=== PATIENT | female | born 1965 | race African-American/Black ===

== ENCOUNTER 2017-01-03 23:12 | Emergency (ER) | payer OTHER ==
[2017-01-04 00:05] VITALS: BP 164/115; PULSE 74; TEMP 97.9; BMI 51.6
--- NOTE | 2017-01-04 01:36 | PDOC ---
History of Present Illness - General Chief Complaint: Head/Neck problem Stated Complaint: LEFT SIDE PAIN Time Seen by Provider: 01/04/17 01:11 History Source: Patient Exam Limitations: No Limitations - History of Present Illness Initial Comments: 01/04/17 01:31 51yo Female patient with no significant past medical presents to ED with multiple complaints. Patient states 2 days ago having intermittent numbness to Lt face. Patient states symptoms of Rt arm pain and numbness x 2 weeks preceded facial numbness. Patient also c/o Rt posterior foot pain atraumatic in nature. She denies any other complaints at this time. LNMP: 2 yrs ago. Timing/Duration: reports: other (See HPI) Severity: Yes: mild Episode Description: See HPI Associated Symptoms: denies: denies symptoms, confusion, fatigue, fever/chills, insomnia, loss of consciousness, muscle spasms, nausea/vomiting, numbness in legs/feet, paresthesia, ringing in ears, seizures, sleepy, slurred speech, tingling in legs/feet, trouble walking, vision changes, weakness, other Past History - Travel Traveled outside of the country in the last 30 days: No Close contact w/someone who was outside of country & ill: No - Past Medical History Allergies/Adverse Reactions: Allergies Allergy/AdvReac Type Severity Reaction Status Date / Time Penicillins Allergy Verified 01/04/17 00:02 Home Medications: Ambulatory Orders Amlodipine Besylate [Norvasc -] 2.5 mg PO BID #14 tab 09/23/15 Ibuprofen [Motrin -] 600 mg PO QID #28 tablet 09/23/15 Azithromycin [Zithromax Tri-Landry (3 DAYS) -] 500 mg PO DAILY #7 tablet 01/06/16 Oxycodone HCl/Acetaminophen [Percocet 5-325 mg Tablet] 1 tab PO Q6H #20 tablet MDD 4 01/06/16 Pregabalin [Lyrica] 100 mg PO BID #14 capsule MDD 2 01/06/16 HTN: Yes (non compliants with meds, last taken wednesday) - Immunization History Immunization Up to Date: Yes - Psycho/Social/Smoking Cessation Hx Anxiety: No Suicidal Ideation: No Smoking History: Never smoked Have you smoked in the past 12 months: No Information on smoking cessation initiated: No Hx Alcohol Use: No Drug/Substance Use Hx: No Substance Use Type: Alcohol Neuro Specific PMHX - Complaint Specific PMHX Glaucoma: No Herniated Disk: No Laminectomy: No Migraine: No Multiple Sclerosis: No Neuropathy: No TIA: No Review of Systems - Review of Systems Able to Perform ROS?: Yes Is the patient limited Mohawk proficient: No Constitutional: No: Chills, Fever HEENTM: No: Blurred Vision, Recent change in vision, Double Vision Respiratory: No: Shortness of Breath, Stridor, Wheezing, Hemoptysis Cardiac (ROS): No: Chest Pain, Lightheadedness, Palpitations, Syncope, Chest Tightness ABD/GI: No: Constipated, Diarrhea, Nausea, Vomiting, Abdominal cramping : No: Dysuria, Flank Pain, Hematuria Musculoskeletal: Yes: Other (Right arm pain) Integumentary: No: Erythema Neurological: Yes: Numbness (Face and Right shoulder). No: Paresthesia, Seizure , Tingling, Tremors, Weakness, Ataxia All Other Systems: Reviewed and Negative *Physical Exam - Vital Signs Last Vital Signs Temp Pulse Resp BP Pulse Ox 97.9 F 74 20 164/115 98 01/04/17 00:03 01/04/17 00:03 01/04/17 00:03 01/04/17 00:03 01/04/17 00:03 - Physical Exam General Appearance: Yes: Nourished, Appropriately Dressed. No: Apparent Distress, Mild Distress, Moderate Distress, Severe Distress HEENT: positive: EOMI, CALISTA, Normal ENT Inspection, Normal Voice, Symmetrical, TMs Normal, Pharynx Normal. negative: Photophobia, Pharyngeal Erythema, Tonsillar Exudate, Tonsillar Erythema, Rhinorrhea, Sinus Tenderness, TM Bulging , TM Dull, TM Erythema, Excessive drooling Neck: positive: Trachea midline, Supple. negative: Tender, Stridor, Lymphadenopathy (R), Lymphadenopathy (L) Respiratory/Chest: positive: Lungs Clear, Normal Breath Sounds. negative: Chest Tender, Respiratory Distress, Accessory Muscle Use, Labored Respiration, Rapid RR, Crackles, Rales, Rhonchi, Stridor, Wheezing Cardiovascular: positive: Regular Rhythm, Regular Rate. negative: Edema Gastrointestinal/Abdominal: positive: Normal Bowel Sounds, Soft. negative: Distended, Guarding, Rebound, Tenderness Musculoskeletal: positive: Normal Inspection. negative: CVA Tenderness, CVA Tenderness (R), CVA Tenderness (L) Extremity: positive: Normal Capillary Refill, Normal Inspection, Normal Range of Motion. negative: Pedal Edema, Swelling, Calf Tenderness, Erythema, Inflammation Integumentary: positive: Normal Color, Dry, Warm. negative: Erythema, Rash, Swelling Neurologic: positive: hand outside cutter II-XII NML intact, Fully Oriented, Alert, Normal Mood/ Affect, Normal Response, Motor Strength 5/5, Finger to Nose. negative: Facial Droop, Sensory Deficit, Confused, Disoriented ED Treatment Course - LABORATORY CBC & Chemistry Diagram: 01/04/17 01:47 01/04/17 01:47 - RADIOLOGY Radiology Studies Ordered: Category Date Time Status HEAD CT WITHOUT CONTRAST [CT] Stat CT Scan 01/04/17 01:30 Ordered *DC/Admit/Observation/Transfer Diagnosis at time of Disposition: Right foot pain, Numbness - Discharge Dispostion Disposition: HOME Condition at time of disposition: Improved Admit: No - Referrals Referrals: Aldair Gusman MD [Staff Physician] - - Patient Instructions Printed Discharge Instructions: DI for Numbness/tingling Additional Instructions: FOLLOW UP WITH DR. GUSMAN (NEUROLOGY). CALL TO SCHEDULE APPOINTMENT. RETURN IF SYMPTOMS WORSEN OR ANY CONCERN FOR FURTHER EVALUATION. Print Language: FRISIAN
[2017-01-04 01:57] LABS: BASOPHIL 0.4 % (0-2.0); EOSINOPHIL 2.1 % (0-4.5); MCH 29.5 pg (25.7-33.7); MEAN CELL VOLUME 89.3 fl (80-96); MEAN PLT VOLUME 8.9 fl (7.5-11.1); NEUTROPHILS 56.9 % (42.8-82.8); PLATELET COUNT 216 K/MM3 (134-434); RDW 13.3 % (11.6-15.6); WHITE BLOOD COUNT 11.2 K/mm3 (4.0-10.0)
[2017-01-04 02:09] LABS: INR 1.03 (0.82-1.09); PROTHROMBIN TIME (PATIENT) 11.3 SEC (9.98-11.88)
[2017-01-04 02:12] LABS: ACTIVATED PTT 39.5 SECONDS (26.9-34.4)
[2017-01-04 02:21] LABS: ALBUMIN 3.8 g/dl (3.4-5.0); ANION GAP 7 (8-16); BILIRUBIN,TOTAL 0.4 mg/dL (0.2-1.0); CALCIUM 8.7 mg/dL (8.5-10.1); CO2 27 mmol/L (21-32); GLUCOSE,RANDOM 104 mg/dL (74-106); SGOT/AST 53 U/L (15-37); SGPT/ALT 54 U/L (12-78); TOT PROT 7.5 g/dl (6.4-8.2)
[2017-01-04 02:24] LABS: ALK PHOS 106 U/L (45-117); TROPONIN I < 0.02 ng/ml (0.00-0.05)
[2017-01-04 02:51] LABS: URINE APPEARANCE CLEAR; URINE BILIRUBIN NEGATIVE (NEGATIVE); URINE BLOOD NEGATIVE (NEGATIVE); URINE COLOR LTYELLOW; URINE GLUCOSE (UA) NEGATIVE (NEGATIVE); URINE KETONE NEGATIVE (NEGATIVE); URINE LEUK ESTERASE NEGATIVE (NEGATIVE); URINE NITRITE NEGATIVE (NEGATIVE); URINE UROBILINOGEN NEGATIVE mg/dL (0.2-1.0)
[2017-01-04 02:52] LABS: URINE PROTEIN 1+ (NEGATIVE)
[2017-01-04 02:54] LABS: URINE BACTERIA FEW /hpf (NONE SEEN); URINE MUCUS RARE; URINE RBC <1 /hpf (0-3); URINE WBC 4 /hpf (3-5)
--- NOTE | 2017-01-04 12:33 | EKG ---
Test Reason : Blood Pressure : / mmHG Vent. Rate : 060 BPM Atrial Rate : 060 BPM P-R Int : 164 ms QRS Dur : 100 ms QT Int : 448 ms P-R-T Axes : 063 005 062 degrees QTc Int : 448 ms NORMAL SINUS RHYTHM WITH SINUS ARRHYTHMIA POSSIBLE LEFT ATRIAL ENLARGEMENT SEPTAL INFARCT , AGE UNDETERMINED ABNORMAL ECG WHEN COMPARED WITH ECG OF 23-SEP-2015 09:54, VENT. RATE HAS DECREASED BY 51 BPM Confirmed by TIBURCIO ALAS, TOMI ([id number]) on 01/04/2017 12:32:35 PM Referred By: Confirmed By:TOMI DEY MD
== END 2017-01-04 04:40 | disposition home or self-care (01) ==
LOC: JER 23:12
DX: R20.0 Anesthesia of skin (principal); I10 Essential (primary) hypertension; Z91.14 Patient's other noncompliance with medication regimen
CPT/HCPCS: 36415; 70450-TC; 80053; 81003; 81015; 82550; 82553; 84484; 85025; 85610; 85730; 93005; 93010; 99283-25

== ENCOUNTER 2017-07-20 09:00 | Emergency (ER) | payer OTHER ==
[2017-07-20 09:19] VITALS: PULSE 63; TEMP 98.5; BMI 43.5
[2017-07-20 09:54] VITALS: BP 145/109
[2017-07-20] MEDS ORDERED: ONDANSETRON *ODT* 4 MG TABLET SL ONE (10:01)
[2017-07-20] MEDS ORDERED: ONDANSETRON *ODT* 4 MG TABLET ONE (10:06)
[2017-07-20] MEDS ORDERED: amLODIPine BESYLATE 10 MG TABLET (FP) PO ONE (10:33)
--- NOTE | 2017-07-20 10:37 | PDOC ---
History of Present Illness - General Chief Complaint: Nausea/Vomiting Stated Complaint: NAUSEA/VOMITING Time Seen by Provider: 07/20/17 09:45 History Source: Patient Exam Limitations: No Limitations - History of Present Illness Initial Comments: 07/20/17 10:33 52 yr female history of HTN stopped med one month ago after running out presents to ER with nvd started last night 5pm with chills. no urianry complaints, no headache or blurry vision no chest pain. Pt states she has been around persons with flu. Past History - Past Medical History Allergies/Adverse Reactions: Allergies Allergy/AdvReac Type Severity Reaction Status Date / Time Penicillins Allergy Verified 07/20/17 09:10 Home Medications: Ambulatory Orders Amlodipine Besylate 10 mg PO DAILY 07/20/17 Amlodipine Besylate 10 mg PO DAILY #30 tablet 07/20/17 Ondansetron [Zofran Odt -] 4 mg SL TID PRN #12 od.tablet 07/20/17 COPD: No DVT: No HTN: Yes (non compliants with meds, last taken wednesday) - Immunization History Immunization Up to Date: Yes - Suicide/Smoking/Psychosocial Hx Smoking History: Never smoked Have you smoked in the past 12 months: No Information on smoking cessation initiated: No Hx Alcohol Use: No Drug/Substance Use Hx: No Substance Use Type: Alcohol Review of Systems - Review of Systems Able to Perform ROS?: Yes Is the patient limited Indonesian proficient: No Constitutional: No: Symptoms Reported HEENTM: No: Symptoms Reported Respiratory: No: Symptoms reported Cardiac (ROS): No: Symptoms Reported ABD/GI: Yes: Symptoms Reported *Physical Exam - Vital Signs Last Vital Signs Temp Pulse Resp BP Pulse Ox 98.5 F 63 16 145/109 96 07/20/17 09:10 07/20/17 09:10 07/20/17 09:10 07/20/17 09:53 07/20/17 09:10 - Physical Exam General Appearance: Yes: Nourished, Appropriately Dressed HEENT: positive: EOMI, CALISTA, Normal ENT Inspection, TMs Normal, Pharynx Normal. negative: TM Erythema Neck: positive: Supple. negative: Tender Respiratory/Chest: positive: Lungs Clear, Normal Breath Sounds. negative: Chest Tender Cardiovascular: positive: Regular Rhythm, Regular Rate Gastrointestinal/Abdominal: positive: Normal Bowel Sounds, Soft. negative: Tender Rectal Exam: positive: deferred Musculoskeletal: positive: Normal Inspection Extremity: positive: Normal Capillary Refill, Normal Inspection, Normal Range of Motion Integumentary: positive: Normal Color, Dry, Warm Neurologic: positive: Normal Response, Motor Strength 10/23 ED Treatment Course - Medications Given in the ED: ED Medications Discontinued Medications Generic Name Dose Route Start Last Admin Trade Name Shanae PRN Reason Stop Dose Admin Ondansetron HCl 4 mg 07/20/17 10:01 07/20/17 10:07 Zofran Odt - SL 07/20/17 10:02 4 mg ONCE ONE Administration Medical Decision Making - Medical Decision Making 07/20/17 10:34 cc: chills, nvd started last night with nausea today will give zofran dose of norvasc will check for flu ] 07/20/17 16:12 negative for flu dc inst discussed in detail with pt who understands she must follow up regardig her BP with her PMD this week call today to make appointment. I will give a 30 days upply of her norvasc. at discharge pt denies headache no weakness no vision changes. BP 147/99 left arm 150/100 right arm pt states this is her usual BP readings. *DC/Admit/Observation/Transfer Diagnosis at time of Disposition: Acute gastroenteritis - Discharge Dispostion Disposition: HOME Condition at time of disposition: Good - Prescriptions Prescriptions: Amlodipine Besylate 10 mg PO DAILY #30 tablet Ondansetron [Zofran Odt -] 4 mg SL TID PRN #12 od.tablet PRN Reason: Nausea And/Or Vomiting - Referrals Referrals: Bob Jean MD [Primary Care Provider] - - Patient Instructions Additional Instructions: bland diet clear liquids ice pops jello dry crackers dry toast plain rice follow with our doctor to discuss your blood pressure today it was 149/106 we gave you norvasc today 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
[2017-07-20] MEDS ORDERED: amLODIPine BESYLATE 5 MG TABLET (FP) ONE (10:38)
== END 2017-07-20 11:22 | disposition home or self-care (01) ==
LOC: JER 09:00 → JERFT 09:00
DX: K52.9 Noninfective gastroenteritis and colitis, unspecified (principal); I10 Essential (primary) hypertension; Z91.14 Patient's other noncompliance with medication regimen
CPT/HCPCS: 87804; 99281-25

== ENCOUNTER 2017-10-05 08:15 | Emergency (ER) | payer OTHER ==
[2017-10-05] MEDS ORDERED: KETOROLAC TROMETHAMINE 30 MG/1 ML VIAL IM ONE (08:20)
--- NOTE | 2017-10-05 08:22 | PDOC ---
History of Present Illness - General Chief Complaint: Injury Stated Complaint: FALL Time Seen by Provider: 10/05/17 08:17 - History of Present Illness Initial Comments: 10/05/17 08:17 Ms. Ordaz is a 52 yo female w/ pmh of HTN who presents for evaluation of lower extremity pain after left leg "buckeled" while going down the stairs earlier today. She reports she was on the 3rd step up from the landing when she felt her left knee give out. She then fell backwards and believes she hurt her right leg by twisting it at this time. She denies any LOC or head injury and has no pain along her back at this time. The patient denies chest pain, shortness of breath, headache and dizziness. Denies fever, chills, nausea, vomit, diarrhea and constipation. Denies dysuria, frequency, urgency and hematuria. Allergies: Penicillins Past History - Past Medical History Allergies/Adverse Reactions: Allergies Allergy/AdvReac Type Severity Reaction Status Date / Time Penicillins Allergy Verified 10/05/17 08:56 Home Medications: Ambulatory Orders NK [No Known Home Medication] 10/05/17 COPD: No DVT: No HTN: Yes (non compliants with meds, last taken wednesday) - Immunization History Immunization Up to Date: Yes - Suicide/Smoking/Psychosocial Hx Smoking History: Never smoked Have you smoked in the past 12 months: No Hx Alcohol Use: No Drug/Substance Use Hx: No Substance Use Type: Alcohol Review of Systems - Review of Systems Comments:: 10/05/17 08:25 GENERAL/CONSTITUTIONAL: No fever or chills. No weakness. HEAD, EYES, EARS, NOSE AND THROAT: No change in vision. No ear pain or discharge. No sore throat. CARDIOVASCULAR: No chest pain or shortness of breath RESPIRATORY: No cough, wheezing, or hemoptysis. GASTROINTESTINAL: No nausea, vomiting, diarrhea or constipation. GENITOURINARY: No dysuria, frequency, or change in urination. MUSCULOSKELETAL: Left knee and right ankle pain SKIN: No rash NEUROLOGIC: No headache, vertigo, loss of consciousness, or change in strength/ sensation. ENDOCRINE: No increased thirst. No abnormal weight change HEMATOLOGIC/LYMPHATIC: No anemia, easy bleeding, or history of blood clots. ALLERGIC/IMMUNOLOGIC: No hives or skin allergy. *Physical Exam - Physical Exam Comments: 10/05/17 08:25 GENERAL: Awake, alert, and fully oriented, in no acute distress HEAD: No signs of trauma, normocephalic, atraumatic EYES: PERRLA, EOMI, sclera anicteric, conjunctiva clear ENT: Auricles normal inspection, hearing grossly normal, nares patent, oropharynx clear without exudates. Moist mucosa NECK: Normal ROM, supple, no lymphadenopathy, JVD, or masses LUNGS: No distress, speaks full sentences, clear to auscultation bilaterally HEART: Regular rate and rhythm, normal S1 and S2, no murmurs, rubs or gallops, peripheral pulses normal and equal bilaterally. ABDOMEN: Soft, nontender, normoactive bowel sounds. No guarding, no rebound. No masses EXTREMITIES: +TTP at right inferior malleolus and left interarticular knee joint space. NEUROLOGICAL: Cranial nerves II through XII grossly intact. Normal speech, normal gait, no focal sensorimotor deficits SKIN: Warm, Dry, normal turgor, no rashes or lesions noted. Medical Decision Making - Medical Decision Making 10/05/17 08:26 Ms. Ordaz is a 52 yo female w/ no pmh who presents for evaluation of leg pain post fall. XR sent for evaluation to r/o fracture. 10/05/17 10:41 XR negative for fracture of ankle or knee 10/05/17 11:01 Knee wrapped with santa bandage and air cast given for ankle. Patient able to ambulate with crutches. Discharging patient w/ ortho f/u information patient will use as needed. Patient will take ibuprofen/aleve OTC for pain relief. Discharging to home. *DC/Admit/Observation/Transfer Diagnosis at time of Disposition: Fall Qualifiers: Encounter type: initial encounter Qualified Code(s): W19.XXXA - Unspecified fall, initial encounter - Discharge Dispostion Disposition: HOME - Referrals Referrals: Anderson Chung MD [Staff Physician] - Aldair Gupta MD [Staff Physician] - - Patient Instructions Printed Discharge Instructions: DI for Knee Sprain, DI for Ankle Sprain Additional Instructions: Please return if pain not controllable with over the counter medication. Follow- up with orthopedic physician at provided information as needed. - Post Discharge Activity Forms/Work/School Notes: Back to Work
[2017-10-05] MEDS ORDERED: KETOROLAC TROMETHAMINE 30 MG/1 ML VIAL ONE (08:28)
[2017-10-05] MEDS ORDERED: HYDROCHLOROTHIAZIDE 12.5 MG CAPSULE (FP) PO ONE (08:59)
[2017-10-05] MEDS ORDERED: HYDROCHLOROTHIAZIDE 25 MG TABLET (FP) ONE (09:02)
[2017-10-05 09:05] VITALS: PULSE 84; TEMP 97.2; BMI 44.9
--- NOTE | 2017-10-05 09:19 | PDOC ---
Attending Attestation - Resident Resident Name: Patrice Barrorn - ED Attending Attestation I have performed the following: I have examined & evaluated the patient, The case was reviewed & discussed with the resident, I agree w/resident's findings & plan - HPI HPI: 10/05/17 09:12 52-year-old female with history of hypertension (not compliant with her medications) presents with left knee and right ankle pain after injury last night. Patient was walking downstairs, planted her weight on her left leg when her left knee gave out causing her to twist her right ankle. She landed on the steps on her bottom, did not sustain injury there. Remains seated for the rest of the night, then activated EMS. She has not ambulated since the injury. Complaining of right ankle pain and left knee pain. - Physicial Exam PE: 10/05/17 09:13 Vital signs as noted, slightly elevated blood pressure but asymptomatic Left knee with some discomfort to palpation along the lateral joint space, stable on anterior/posterior/valgus/varus stress. No focal bony tenderness or deformity. Right ankle with tenderness over the medial malleolus, slight joint swelling, neurovascularly intact distally Trauma exam is otherwise unremarkable - Medical Decision Making 10/05/17 09:14 Patient seen and evaluated with the resident. I agree with the overall evaluation, assessment, and management with the following summary of visit: 52y/o F with musculoskeletal pain, likely L knee strain (atraumatic) and R ankle sprain, r/o fracture. NVI. R ankle, L knee xrays ice and pain meds reassess PMD referral for BP 10/05/17 10:46 xray negative for fracture. Bulky dressing and splint for support, WBAT, ortho f /u.
[2017-10-05 10:41] VITALS: BP 189/103
== END 2017-10-05 11:08 | disposition home or self-care (01) ==
LOC: JER 08:15
PROC: 2W3RX1Z Immobilization of Left Lower Leg using Splint (ICD-10-PCS; principal; 2017-10-05)
DX: S93.492A Sprain of other ligament of left ankle, initial encounter (principal); S83.8X2A Sprain of other specified parts of left knee, initial encounter; W10.8XXA Fall (on) (from) other stairs and steps, initial encounter; Y93.89 Activity, other specified; Y92.69 Other specified industrial and construction area as the place of occurrence of the external cause; Y99.0 Civilian activity done for income or pay
CPT/HCPCS: 73562-TC-LT-FY; 73610-TC-RT-FY; 73630-TC-RT-FY; 99282-25

== ENCOUNTER 2018-05-31 08:52 | Emergency (ER) | payer OTHER ==
[2018-05-31 09:02] VITALS: BP 169/82; PULSE 67; TEMP 98; BMI 46.2
[2018-05-31] MEDS ORDERED: IBUPROFEN 600 MG TABLET (FP) PO ONE ×2 (09:41→09:42)
--- NOTE | 2018-05-31 09:44 | PDOC ---
History of Present Illness - General Chief Complaint: Cold Symptoms Stated Complaint: PAIN,LT SHOULDER/EARS Time Seen by Provider: 05/31/18 09:35 History Source: Patient Exam Limitations: No Limitations - History of Present Illness Initial Comments: 05/31/18 09:42 Patient here with complaints of body aches, chills, headache pain neck pain sore throat pain and ear pain that started last night. States cousin was sick last week with URI and thinks may be the same. Has taken no medication for relief. Denies fevers also complains of left shoulder pain without trauma. States does not do any heavy lifting or strenuous activity, has no known recent injury or trauma, no rashes lesions or fevers. Timing/Duration: reports: getting worse Severity: reports: moderate Associated Symptoms: reports: cough, earache, fever/chills, headache, nasal congestion, sore throat Past History - Travel Traveled outside of the country in the last 30 days: No Close contact w/someone who was outside of country & ill: No - Past Medical History Allergies/Adverse Reactions: Allergies Allergy/AdvReac Type Severity Reaction Status Date / Time Penicillins Allergy Verified 10/05/17 08:56 Home Medications: Ambulatory Orders Naproxen [Naprosyn -] 500 mg PO BID #30 tablet 05/31/18 COPD: No DVT: No HTN: Yes (non compliants with meds, last taken wednesday) - Immunization History Immunization Up to Date: Yes - Suicide/Smoking/Psychosocial Hx Smoking History: Never smoked Have you smoked in the past 12 months: No Information on smoking cessation initiated: No Hx Alcohol Use: No Drug/Substance Use Hx: No Substance Use Type: Alcohol Review of Systems - Review of Systems Able to Perform ROS?: Yes Is the patient limited Paraguayan proficient: Yes Constitutional: Yes: Symptoms Reported, See HPI, Malaise HEENTM: Yes: Symptoms Reported, See HPI, Nose Congestion Respiratory: Yes: Symptoms reported, See HPI, Cough, Wheezing : No: Symptoms Reported Musculoskeletal: Yes: Symptoms Reported, Joint Pain, Joint Swelling Integumentary: Yes: Symptoms Reported, See HPI All Other Systems: Reviewed and Negative *Physical Exam - Vital Signs Last Vital Signs Temp Pulse Resp BP Pulse Ox 98.0 F 67 16 169/82 96 05/31/18 08:59 05/31/18 08:59 05/31/18 08:59 05/31/18 08:59 05/31/18 08:59 - Physical Exam General Appearance: Yes: Nourished, Appropriately Dressed, Apparent Distress, Mild Distress HEENT: positive: CALISTA, Normal ENT Inspection, TMs Normal, Pharynx Normal, Tonsillar Erythema, Nasal Congestion, Rhinorrhea. negative: Pharyngeal Erythema , Tonsillar Exudate Neck: positive: Supple. negative: Lymphadenopathy (R), Lymphadenopathy (L) Respiratory/Chest: positive: Lungs Clear, Normal Breath Sounds Gastrointestinal/Abdominal: positive: Soft. negative: Tender Extremity: positive: Normal Capillary Refill, Normal Inspection. negative: Normal Range of Motion (limited range of motion to left shoulder, able to abduct and forward flex to proximally 90 with reproducible tenderness against resistance. Has strong flexion and extension at wrist and strong grasp. 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 Given Naprosyn for anti- inflammatory and pain relief. *DC/Admit/Observation/Transfer Diagnosis at time of Disposition: Upper respiratory infection Left shoulder strain Qualifiers: Encounter type: initial encounter Qualified Code(s): S46.912A - Strain of unspecified muscle, fascia and tendon at shoulder and upper arm level, left arm , initial encounter - Discharge Dispostion Disposition: HOME Condition at time of disposition: Stable Decision to Admit order: No - Prescriptions Prescriptions: Naproxen [Naprosyn -] 500 mg PO BID #30 tablet - Referrals Referrals: Shorty Johnson MD [Primary Care Provider] - Ron Arita MD [Staff Physician] - - Patient Instructions Printed Discharge Instructions: DI for Viral Upper Respiratory Infection -- Adult, DI for Shoulder Sprain Additional Instructions: Rest, drink lots of fluids: Teas, water, soups, Pedialyte Saltwater gargles Steamy showers/seem to face break up mucus Avoid contact with others until fevers and cough resolved Lots of handwashing and good hygiene Continue [id number] medications for symptomatic relief Tylenol or Motrin for fever and pain Followup with private physician in one to 2 days as needed Return to emergency department for worsened symptoms, fevers, dehydration - Post Discharge Activity Forms/Work/School Notes: Back to Work
== END 2018-05-31 10:50 | disposition home or self-care (01) ==
LOC: JERFT 08:52
DX: J06.9 Acute upper respiratory infection, unspecified (principal); S46.912A Strain of unspecified muscle, fascia and tendon at shoulder and upper arm level, left arm, initial encounter; I10 Essential (primary) hypertension
CPT/HCPCS: 73030-TC-LT-FY; 87804; 99281-25

== ENCOUNTER 2020-09-17 18:51 | Emergency (ER) | payer OTHER ==
[2020-09-17 19:01] VITALS: BP 151/84; PULSE 78; TEMP 98.4; BMI 41.9
[2020-09-17] MEDS ORDERED: LACTATED RINGERS SOLUTION 1000 ML INFUS.BAG IV ONE (19:52)
[2020-09-17 20:37] LABS: THROAT:GRP A STREP Negative (Negative)
[2020-09-17 20:43] LABS: BASO % 0.3 % (0-2.0); EOS % 1.6 % (0-4.5); HEMATOCRIT 39.4 % (32.4-45.2); HEMOGLOBIN 13.4 GM/dL (10.7-15.3); LYMPH % 38.6 % (8-40); MCH 30.8 pg (25.7-33.7); MCHC 33.9 g/dl (32.0-36.0); MEAN PLT VOLUME 9.1 fl (7.5-11.1); MONO % 6.9 % (3.8-10.2); NEUT % 52.6 % (42.8-82.8); PLATELET COUNT 227 K/MM3 (134-434); RBC 4.34 M/mm3 (3.60-5.2); WHITE BLOOD COUNT 10.9 K/mm3 (4.0-10.0)
[2020-09-17 20:45] LABS: ALBUMIN 3.6 g/dl (3.4-5.0); BLOOD UREA NITROGEN 12.8 mg/dL (7-18)
[2020-09-17 20:50] LABS: BILIRUBIN,TOTAL 0.3 mg/dL (0.2-1); TOT PROT 7.3 g/dl (6.4-8.2)
[2020-09-17] MEDS ORDERED: ALBUTEROL SO4 2.5/IPRATROPIUM 0.5 INH SOL 3 ML VIAL.NEB. NEB ONE (21:42)
== END 2020-09-17 22:05 | disposition home or self-care (01) ==
LOC: JCOVINFU 18:51 → JER 18:51
DX: R06.02 Shortness of breath (principal); B34.9 Viral infection, unspecified
CPT/HCPCS: 36415; 71046-TC-FY; 80053; 85025; 87880; 93005; 93010; 99285-25; C9803; U0003

== ENCOUNTER 2021-07-22 11:05 | Emergency (ER) | payer OTHER ==
[2021-07-22 11:15] VITALS: BP 131/87; PULSE 85; TEMP 97.8; BMI 46.3
[2021-07-22] MEDS ORDERED: IBUPROFEN 600 MG TABLET (FP) PO ONE (11:46)
== END 2021-07-22 14:25 | disposition left against medical advice (07) ==
LOC: JER 11:05
DX: R07.9 Chest pain, unspecified (principal)
CPT/HCPCS: 71045-TC-FY; 93005; 93010; 99284-25

== ENCOUNTER 2021-12-26 11:28 | Emergency (ER) | payer OTHER ==
[2021-12-26 11:53] VITALS: BP 139/82; PULSE 80; TEMP 98.3; BMI 44.6
[2021-12-26] MEDS ORDERED: LIDOCAINE 5% TOPICAL PATCH ONE (13:43)
[2021-12-26] MEDS ORDERED: IBUPROFEN 600 MG TABLET (FP) PO ONE (13:43)
== END 2021-12-26 15:55 | disposition home or self-care (01) ==
LOC: JERFT 11:28
DX: M79.602 Pain in left arm (principal); R22.32 Localized swelling, mass and lump, left upper limb
CPT/HCPCS: 73030-TC-LT-FY; 73090-TC-LT-FY; 73110-TC-LT-FY; 73130-TC-LT-FY; 93005; 93010; 93971; 99285-25

== ENCOUNTER 2022-04-13 09:43 | Emergency (ER) | payer OTHER ==
[2022-04-13 09:49] VITALS: BP 148/65; PULSE 93; RESP 18; TEMP 98.5; BMI 48.0
[2022-04-13] MEDS ORDERED: ACETAMINOPHEN 1000 MG/100 ML BAG IVPB ONE (10:38)
[2022-04-13] MEDS ORDERED: morphine CARPU-JECT 4 MG/1 ML DISP.SYRIN IVPUSH ONE (10:38)
[2022-04-13] MEDS ORDERED: ALBUTEROL SO4 2.5/IPRATROPIUM 0.5 INH SOL 3 ML VIAL.NEB. NEB ONE ×2 (10:43→12:24)
[2022-04-13 11:45] LABS: BASO % 0.4 % (0-2.0); EOS % 0.3 % (0-4.5); HEMATOCRIT 38.8 % (32.4-45.2); HEMOGLOBIN 13.1 GM/dL (10.7-15.3); LYMPH % 24.5 % (8-40); MCH 30.1 pg (25.7-33.7); MCHC 33.8 g/dl (32.0-36.0); MEAN PLT VOLUME 8.7 fl (7.5-11.1); MONO % 12.9 % (3.8-10.2); NEUT % 61.9 % (42.8-82.8); PLATELET COUNT 182 10^3/uL (134-434); RBC 4.36 M/mm3 (3.60-5.2); RDW 12.9 % (11.6-15.6); WHITE BLOOD COUNT 6.8 K/mm3 (4.0-10.0)
[2022-04-13 11:59] LABS: INR 1.16 (0.83-1.09); PROTHROMBIN TIME (PATIENT) 13.4 SEC (9.7-13.0)
[2022-04-13 12:02] LABS: ACTIVATED PTT 35.3 SECONDS (25.2-36.5)
[2022-04-13 12:11] LABS: CALCIUM 8.7 mg/dL (8.5-10.1)
[2022-04-13 12:12] LABS: ALBUMIN 3.7 g/dl (3.4-5.0); BLOOD UREA NITROGEN 14.7 mg/dL (7-18)
[2022-04-13 12:16] LABS: BILIRUBIN,TOTAL 0.8 mg/dL (0.2-1)
[2022-04-13 12:17] LABS: TOT PROT 7.7 g/dl (6.4-8.2)
[2022-04-13] MEDS ORDERED: ACETAMINOPHEN INJECTION 100 ML IVPB ONE (12:25)
[2022-04-13] MEDS ORDERED: morphine SULFATE 4 MG/ML VIAL ONE (12:25)
[2022-04-13 12:47] LABS: EPI CELLS 22 /uL (0-25.1); HYALINE CASTS 2 /uL (0-3.1); PH,URINE 5.5 (5.0-8.0); URINE APPEARANCE CLEAR; URINE BACTERIA 521 /uL (0-1359); URINE BILIRUBIN NEGATIVE (NEGATIVE); URINE COLOR DK YELLOW; URINE GLUCOSE (UA) NEGATIVE (NEGATIVE); URINE KETONE NEGATIVE (NEGATIVE); URINE LEUK ESTERASE NEGATIVE (NEGATIVE); URINE NITRITE NEGATIVE (NEGATIVE); URINE PROTEIN 2+ (NEGATIVE); URINE RBC 13 /uL (0-23.9); URINE WBC 9 /uL (0-25.8)
[2022-04-13] MEDS ORDERED: SODIUM CHLORIDE 0.9% 500 ML INFUS.BAG IV ONE (14:15)
== END 2022-04-13 17:41 | disposition home or self-care (01) ==
LOC: JER 09:43
PROC: 3E033NZ Introduction of Analgesics, Hypnotics, Sedatives into Peripheral Vein, Percutaneous Approach (ICD-10-PCS; principal; 2022-04-13)
PROC: 3E033GC Introduction of Other Therapeutic Substance into Peripheral Vein, Percutaneous Approach (ICD-10-PCS; 2022-04-13)
PROC: 3E0F7GC Introduction of Other Therapeutic Substance into Respiratory Tract, Via Natural or Artificial Opening (ICD-10-PCS; 2022-04-13)
DX: U07.1 COVID-19 (principal); R10.9 Unspecified abdominal pain
CPT/HCPCS: 0241U-QW; 36415; 71045-TC-FY; 74177-TC; 76705-TC; 80053; 81003; 83690; 84484; 85025; 85610; 85730; 86850; 86900; 86901; 87086; 93005; 93010; 99285-25; Q9967

== ENCOUNTER 2022-09-23 08:10 | Emergency (ER) | payer OTHER ==
[2022-09-23 08:22] VITALS: BP 167/102; PULSE 85; RESP 18; TEMP 97.7; BMI 43.5
[2022-09-23] MEDS ORDERED: KETOROLAC TROMETHAMINE 30 MG/1 ML VIAL IM ONE (09:46)
[2022-09-23] MEDS ORDERED: KETOROLAC TROMETHAMINE 30 MG/1 ML VIAL ONE (09:57)
[2022-09-23 12:26] LABS: BASO % 0.4 % (0-2.0); EOS % 1.8 % (0-4.5); HEMATOCRIT 36.7 % (32.4-45.2); HEMOGLOBIN 12.6 GM/dL (10.7-15.3); LYMPH % 32.5 % (8-40); MCH 30.4 pg (25.7-33.7); MCHC 34.4 g/dl (32.0-36.0); MEAN CELL VOLUME 88.3 fl (80-96); MEAN PLT VOLUME 8.7 fl (7.5-11.1); MONO % 6.9 % (3.8-10.2); NEUT % 58.4 % (42.8-82.8); PLATELET COUNT 203 10^3/uL (134-434); RBC 4.16 M/mm3 (3.60-5.2); RDW 13.3 % (11.6-15.6); WHITE BLOOD COUNT 8.6 K/mm3 (4.0-10.0)
[2022-09-23 12:47] LABS: CALCIUM 8.6 mg/dL (8.5-10.1)
[2022-09-23 12:48] LABS: ALBUMIN 3.4 g/dl (3.4-5.0); BLOOD UREA NITROGEN 17.8 mg/dL (7-18)
[2022-09-23 12:51] LABS: CREATININE 0.8 mg/dL (0.55-1.3)
[2022-09-23 12:52] LABS: BILIRUBIN,TOTAL 0.5 mg/dL (0.2-1); TOT PROT 6.9 g/dl (6.4-8.2)
[2022-09-23 13:02] LABS: ERYTHROCYTE SEDIMENTATION RATE 13 mm/hr (0-30)
== END 2022-09-23 13:42 | disposition home or self-care (01) ==
LOC: JERFT 08:10 → JER 08:10 → JERFT 13:42
PROC: 3E0233Z Introduction of Anti-inflammatory into Muscle, Percutaneous Approach (ICD-10-PCS; principal; 2022-09-23)
DX: M79.605 Pain in left leg (principal)
CPT/HCPCS: 36415; 73590-TC-LT-FY; 80053; 85025; 85651; 86140; 93971-TC; 99285-25

== ENCOUNTER 2023-10-11 08:39 | Emergency (ER) | payer OTHER ==
[2023-10-11 08:48] VITALS: BP 141/85; PULSE 78; RESP 19; TEMP 98.4; BMI 30.7
[2023-10-11] MEDS: ACETAMINOPHEN 325 MG TABLET (FP) PO ONE (09:58)
[2023-10-11] MEDS: ALBUTEROL SO4 2.5/IPRATROPIUM 0.5 INH SOL 3 ML VIAL.NEB. NEB ONE ×2 (09:58→10:37)
[2023-10-11] MEDS: KETOROLAC TROMETHAMINE 30 MG/1 ML VIAL IM ONE (09:58)
[2023-10-11] MEDS ORDERED: predniSONE 20 MG TABLET (UD) ONE (10:30)
[2023-10-11] MEDS ORDERED: ALBUTEROL SO4 2.5/IPRATROPIUM 0.5 INH SOL 3 ML VIAL.NEB. NEB ONE (10:30)
[2023-10-11] MEDS: predniSONE 20 MG TABLET (UD) PO ONE (10:37)
== END 2023-10-11 11:48 | disposition home or self-care (01) ==
LOC: JERFT 08:39
PROC: 3E0233Z Introduction of Anti-inflammatory into Muscle, Percutaneous Approach (ICD-10-PCS; principal; 2023-10-11)
PROC: 3E0F7GC Introduction of Other Therapeutic Substance into Respiratory Tract, Via Natural or Artificial Opening (ICD-10-PCS; 2023-10-11)
PROC: 3E0F7GC Introduction of Other Therapeutic Substance into Respiratory Tract, Via Natural or Artificial Opening (ICD-10-PCS; 2023-10-11)
DX: R06.2 Wheezing (principal); R05.9 Cough, unspecified; J02.9 Acute pharyngitis, unspecified; J06.9 Acute upper respiratory infection, unspecified; Z20.822 Contact with and (suspected) exposure to COVID-19
CPT/HCPCS: 0241U-QW; 71046-TC-FY; 87651; 93005; 93010; 99285-25

== ENCOUNTER 2024-01-07 14:31 | Emergency (ER) | payer OTHER ==
[2024-01-07 14:41] VITALS: RESP 18; BMI 42.5
[2024-01-07] MEDS ORDERED: diazePAM 5 MG TABLET ONE (16:14)
[2024-01-07] MEDS ORDERED: KETOROLAC TROMETHAMINE 30 MG/1 ML VIAL ONE (16:14)
[2024-01-07] MEDS: KETOROLAC TROMETHAMINE 30 MG/1 ML VIAL IM ONE (16:25)
[2024-01-07] MEDS: diazePAM 5 MG TABLET PO ONE (16:25)
[2024-01-07 17:41] VITALS: BP 170/80; PULSE 66; TEMP 98.2
== END 2024-01-07 17:58 | disposition home or self-care (01) ==
LOC: JER 14:31
PROC: 3E0233Z Introduction of Anti-inflammatory into Muscle, Percutaneous Approach (ICD-10-PCS; principal; 2024-01-07)
DX: M79.604 Pain in right leg (principal)
CPT/HCPCS: 93971-TC; 99284-25

== ENCOUNTER 2024-12-08 15:45 | Emergency (ER) | payer OTHER ==
[2024-12-08 16:12] VITALS: BP 148/80; PULSE 87; RESP 18; TEMP 98; BMI 44.1
[2024-12-08] MEDS ORDERED: ALBUTEROL SO4 2.5/IPRATROPIUM 0.5 INH SOL 3 ML VIAL.NEB. NEB ONE (17:34)
[2024-12-08] MEDS ORDERED: DEXAMETHASONE SOD PHOSPHATE 10 MG/1 ML VIAL ONE (17:34)
[2024-12-08] MEDS ORDERED: guaiFENesin/CODEINE 10 ML UNIT-DOSE CUPS ONE (17:35)
[2024-12-08] MEDS ORDERED: guaiFENesin/D-METHORPHAN HB 10 ML UNIT-DOSE CUPS ONE (17:36)
[2024-12-08] MEDS: guaiFENesin 200 MG/10 ML 10 ML UNIT-DOSE CUPS PO ONE (17:43)
[2024-12-08] MEDS: ALBUTEROL SO4 2.5/IPRATROPIUM 0.5 INH SOL 3 ML VIAL.NEB. NEB ONE (17:43)
[2024-12-08] MEDS: DEXAMETHASONE SOD PHOSPHATE 10 MG/1 ML VIAL PO ONE (17:43)
[2024-12-08 18:09] LABS: THROAT:GRP A STREP NOT DETECTED (NOTDETECTED)
== END 2024-12-08 19:14 | disposition home or self-care (01) ==
LOC: JERFT 15:45
PROC: 3E0F7GC Introduction of Other Therapeutic Substance into Respiratory Tract, Via Natural or Artificial Opening (ICD-10-PCS; principal; 2024-12-08)
DX: U07.1 COVID-19 (principal); R05.9 Cough, unspecified; M79.10 Myalgia, unspecified site; R09.81 Nasal congestion; R68.83 Chills (without fever); R06.2 Wheezing; J34.3 Hypertrophy of nasal turbinates; R09.02 Hypoxemia
CPT/HCPCS: 0241U-QW; 71046-TC-FY; 87651; 99284-25; J1100